=== PATIENT | male | born 1965 ===

== ENCOUNTER 2017-11-02 22:22 | Inpatient (IN) | payer MEDICARE ==
[2017-11-02 22:23] VITALS: BMI 25.9
--- NOTE | 2017-11-02 22:34 | C.PDOC ---
History Of Present Illness 51 year old male is a transfer from [facility]. Patient was medically cleared at [facility] and was accepted by Dr. To for admission into psychiatric floor. Patient is pleasant, cooperative and with no complaints at this time. Time Seen by Provider: 11/02/17 22:34 Chief Complaint (Nursing): Psychiatric Evaluation History Per: Patient History/Exam Limitations: no limitations Onset/Duration Of Symptoms: Days Current Symptoms Are (Timing): Still Present Suicide/Self Injury Attempted (Context): None Modifying Factor(s): None Associated Symptoms: Depression Additional History Per: Patient, EMS Past Medical History Reviewed: Historical Data, Nursing Documentation, Vital Signs Vital Signs: Last Vital Signs Temp 99.6 F 11/02/17 22:28 Pulse 73 11/02/17 22:28 Resp 18 11/02/17 22:28 BP 103/69 11/02/17 22:28 Pulse Ox 96 11/02/17 22:37 - Medical History PMH: Arthritis (osteoarthritis,), Asthma, Bronchitis, Depression, HIV (FOR 30 YEARS), HTN, Hyperlipidemia, Kidney Stones, Mitral Valve Prolapse, Chronic Kidney Disease (stones), Seizures (LAST SEIZURES -3 YEARS AGO) Denies: Anemia, Diabetes, Hepatitis, Sexually Transmitted Disease Surgical History: No Surg Hx - [facility] Procedures GROUP PSYCHOTHERAPY (04/14/17) INDIVIDUAL PSYCHOTHERAPY, COGNITIVE-BEHAVIORAL (04/14/17) Family History: States: No Known Family Hx - Social History Hx Alcohol Use: No Hx Substance Use: No - Immunization History Hx Tetanus Toxoid Vaccination: No Hx Influenza Vaccination: No Hx Pneumococcal Vaccination: No Review Of Systems Constitutional: Negative for: Fever, Chills Eyes: Negative for: Vision Change Cardiovascular: Negative for: Chest Pain Respiratory: Negative for: Shortness of Breath Gastrointestinal: Negative for: Nausea, Vomiting, Abdominal Pain Psych: Positive for: Depression Physical Exam - Physical Exam Appears: Non-toxic, No Acute Distress Skin: Warm, Dry Head: Normacephalic Eye(s): bilateral: Normal Inspection Chest: Symmetrical Cardiovascular: Rhythm Regular Respiratory: No Rales, No Rhonchi, No Wheezing Gastrointestinal/Abdominal: Soft, No Tenderness, No Guarding, No Rebound Extremity: No Tenderness, No Swelling Extremity: Bilateral: Atraumatic, Normal Color And Temperature, Normal ROM Neurological/Psych: Oriented x3, Normal Speech Gait: Steady ED Course And Treatment O2 Sat by Pulse Oximetry: 96 (ON RA) Pulse Ox Interpretation: Normal Disposition Discussed With DrWolfgang: Alissa To Comment: accepted the pt on his service and took over the care at 10:36 PM Doctor Will See Patient In The: Hospital Counseled Patient/Family Regarding: Studies Performed, Diagnosis - Disposition Referrals: Non [facility] Provider, [Primary Care Provider] - Disposition: HOSPITALIZED Disposition Time: 22:34 Condition: FAIR Forms: [employer] [facility] ([place]) - POA Present On Arrival: None - Clinical Impression Clinical Impression: Major depression - Scribe Statement The provider has reviewed the documentation as recorded by the Scribe Hemal Acosta All medical record entries made by the Scribe were at my direction and personally dictated by me. I have reviewed the chart and agree that the record accurately reflects my personal performance of the history, physical exam, medical decision making, and the department course for this patient. I have also personally directed, reviewed, and agree with the discharge instructions and disposition.
[2017-11-03] MEDS ORDERED: Aluminum Hydroxide/Magnesium Hydroxide Susp (30 mL) PO ONE (01:00)
--- NOTE | 2017-11-03 01:08 | PCM.BM ---
<Jelena Navarro - Last Filed: 11/03/17 01:05> Treatment Plan Problems - Problems identified on initial assessmt Depression Date Initiated: 11/03/17 Time Initiated: 01:05 Assessment reference: NA Status: Active (pt. has feeling of depression since a month ago due to his mother fell and in a fdc.) Treatment assets and liabiliti Patient Assests: adapts well, cooperative Patient Liabilities: physical pain (pt. has pain in hi body related to surgeries.), medical problems (pt. has spilepsy/ knee replacement/ ) - Milieu Protocol Maintain good personal hygiene: daily Encourage regular showers, daily Remind patient to perform daily oral care, daily Assist patient to perform ADL's Maintain personal safety: every shift Educate patient to report safety concerns to staff, every shift Monitor environment for contraband/sharps Medication safety: Monitor for expected outcome, potential side effects: every shift, Assess barriers to learning: every shift, Assess readiness for medication education: every shift <Alissa To - Last Filed: 11/04/17 12:38> - Diagnosis (1) Major depressive disorder Status: Chronic Interventions: 11/04/17 12:38 * Assess/adjust medications daily and /or as needed * See patient on an individual basis 7x/week to assess symptoms of depression * Monitor for side effects & effectiveness of medications * <Debbie Isaac - Last Filed: 11/04/17 13:26> Family Contact Family involvement: Famliy/SO not involved - Goals for Treatment Patient goals for treatment: "I need an outpatient program." Discharge/Continuing Care - Education Needs Education Needs: Patient Medication, Patient Coping Skills - Discharge Discharge Criteria: Tolerates medication w/o severe side effects, Reduction of target symptoms Discharge to:: Home - Treatment Team Participation Discussed with Family/SO: No Was Patient/Family/SO present at Treatment Team Meeting: Yes
[2017-11-03] MEDS ORDERED: Albuterol HFA 90 mcg/actuation (8 g) IH PRN (10:40)
[2017-11-03] MEDS ORDERED: ALIROCUMAB 75 MG SQ SCH (10:45)
[2017-11-03] MEDS: Pantoprazole 40 mg EC Tab PO SCH (12:17)
[2017-11-03] MEDS: Fluticasone-Salmeterol 250-50mcg Diskus IH SCH ×3 (12:18→20:22)
[2017-11-03] MEDS: Abacavir/Lamivudine/Zidovudine 300 mg-150mg- 300 mg Tab PO SCH ×2 (12:22→22:59)
[2017-11-03] MEDS: Lopinavir/Ritonavir Tab PO SCH ×2 (12:23→21:07)
[2017-11-03] MEDS: Tetrahydrozoline Opht 0.05% Sol (15 ml) OD SCH (17:25)
[2017-11-03] MEDS: Aritificial Tears (15ml) OD SCH (17:26)
[2017-11-04] MEDS: Tetrahydrozoline Opht 0.05% Sol (15 ml) OD SCH ×4 (00:30→17:05)
[2017-11-04] MEDS: Aritificial Tears (15ml) OD SCH ×4 (00:30→17:04)
[2017-11-04] MEDS: Fluticasone-Salmeterol 250-50mcg Diskus IH SCH ×2 (08:16→21:34)
[2017-11-04] MEDS: Pantoprazole 40 mg EC Tab PO SCH (09:14)
[2017-11-04] MEDS: Abacavir/Lamivudine/Zidovudine 300 mg-150mg- 300 mg Tab PO SCH ×2 (09:32→21:22)
[2017-11-04] MEDS: Lopinavir/Ritonavir Tab PO SCH ×3 (09:33→21:42)
--- NOTE | 2017-11-04 10:41 | PCM.PSYCH ---
Initial Psychiatric Evaluation - Initial Psychiatric Evaluation Type of Admission: Voluntary Legal Status: Capacity Chief Complaint (in patient's own words): I was feeling depressed and suicidal History of Present Illness and Precipitating Events: Pt is 51 years old CM, who came to ED with depressed mood, and suicidal dieation. Pt reports a long history of depression. He reports history of one inpatient psychiatric hospitalization at [facility] almost 7 moth ago, but denies any history of follow up with any psychiatrist. As per the pt he stopped taking his medications and he had almost 3 seizure episode, as a result he fell down and hit his head. He went through a surgery. As a result, he became increasingly depressed and yesterday came to the to get help. Patient reports depressed mood, feelings of hopelessness and helplessness, poor sleep and poor appetite. He denies any manic symptoms. He denies any auditory or visual hallucinations or any psychotic symptoms. Patient denies any recent substance abuse or any drinking. PMH: HTN, HIV, Seizure disorder, Back pain, Asthma Current Medications: Active Medications Generic Name Dose Route Start Last Admin Trade Name Freq PRN Reason Stop Dose Admin Abacavir/Lamivudine/Zidovudine 1 tab 11/03/17 10:45 11/04/17 09:32 Trizivir 300 Mg-150 Mg-300 Mg PO 1 tab Q12 KENDRA Administration Protocol Albuterol 2 puff 11/03/17 10:40 Ventolin Hfa 90 Mcg/Actuation (8 G) IH RQ6 PRN Shortness of Breath Amlodipine Besylate 5 mg 11/03/17 10:45 11/04/17 09:33 Norvasc PO 5 mg DAILY KENDRA Administration Artificial Tears 0 ml 11/03/17 18:00 11/04/17 06:25 Artificial Tears OD 2 drop Q6 KENDRA Administration Clonazepam 0.5 mg 11/03/17 20:15 11/04/17 09:33 Klonopin PO 0.5 mg BID KENDRA Administration Ezetimibe 10 mg 11/03/17 22:00 11/03/17 21:08 Zetia PO 10 mg HS KENDRA Administration Home Med 75 mg 11/03/17 10:45 Alirocumab [Praluent Pen] SQ Q14D KENDRA Ibuprofen 600 mg 11/03/17 13:39 Motrin Tab PO TID PRN Pain, Mild (1-3) Lopinavir/Ritonavir 1 cap 11/03/17 10:45 11/04/17 09:33 Kaletra 200-50 Mg PO 1 cap Q12 KENDRA Administration Protocol Losartan Potassium 50 mg 11/03/17 10:45 11/04/17 09:33 Cozaar PO 50 mg DAILY KENDRA Administration Metoprolol Tartrate 50 mg 11/03/17 10:45 11/04/17 09:33 Lopressor PO 50 mg Q12 KENDRA Administration Oxcarbazepine 600 mg 11/03/17 10:45 11/04/17 09:32 Trileptal PO 600 mg Q12 KENDRA Administration Pantoprazole Sodium 40 mg 11/03/17 10:45 11/04/17 09:14 Protonix Ec Tab PO 40 mg DAILY KENDRA Administration Rosuvastatin Calcium 20 mg 11/03/17 22:00 11/03/17 21:07 Crestor PO 20 mg HS KENDRA Administration Fluticasone/Salmeterol 1 puff 11/03/17 10:45 11/04/17 08:16 Advair Diskus 250/50 IH 1 puff RQ12 KENDRA Administration Tetrahydrozoline HCl/Zinc Sulfate 0 ml 11/03/17 18:00 11/04/17 06:26 Visine 0.05% Opht Soln OD 1 % Q6 KENDRA Administration Past Psychiatric History - Past Psychiatric History Previous Treatment History: Inpatient Pertinent Medical Hx (Current Medical&Sleep Prob, Allergies): Allergies Allergy/AdvReac Type Severity Reaction Status Date / Time iodine Allergy RASH Verified 11/02/17 22:26 Penicillins Allergy RASH Verified 11/02/17 22:26 Sulfa (Sulfonamide Allergy RASH Verified 11/02/17 22:26 Antibiotics) Abacavir/Lamivudine/Zidovudine [Trizivir Tablet] 1 tab PO Q12 04/14/17 Alirocumab [Praluent Pen] 75 mg SQ Q14D 04/14/17 Colesevelam HCl [Welchol] 1,250 mg PO BID 04/14/17 Ezetimibe [Zetia] 10 mg PO HS 04/14/17 Lopinavir/Ritonavir [Kaletra 200-50 mg] 1 tab PO Q12 04/14/17 Metoprolol Tartrate [Lopressor] 50 mg PO Q12 04/14/17 OXcarbazepine [Trileptal] 600 mg PO Q12 04/14/17 Pantoprazole Sodium [Protonix] 40 mg PO DAILY 04/14/17 Rosuvastatin Calcium [Crestor] 20 mg PO HS 04/14/17 amLODIPine [Norvasc] 5 mg PO DAILY 04/14/17 Albuterol HFA [Ventolin HFA 90 mcg/actuation (8 g)] 2 puff IH Q6H PRN #1 inhaler 04/19/17 Fluticasone/Salmeterol 250/50 [Advair Diskus 250/50] 1 puff IH Q12 #1 unit 04/19 Losartan [Cozaar] 50 mg PO DAILY tab 04/19/17 Sertraline [Zoloft] 50 mg PO DAILY #30 tab 04/19/17 clonazePAM [Klonopin] 1 mg PO Q12 #60 tab 04/19/17 Albuterol/Ipratropium [Duoneb 3 mg/0.5 mg (3 ml) UD] 3 ml INH RQ6 PRN #40 neb Review of Systems - Review of Systems All systems: reviewed and no additional remarkable complaints except - Psychiatric Psychiatric: Anxiety, Behavioral Changes, Depression, Irritability, Suicidal Ideation Mental Status Examination - Personal Presentation Personal Presentation: Looks stated age - Affect Affect: Constricted, Depressed - Motor Activity Motor Activity: Calm - Reliability in Providing Information Reliability in Providing Information: Good - Speech Speech: Organized - Mood Mood: Depressed, Anxious - Formal Thought Process Formal Thought Process: No Impairment - Obsessions/Compulsions Obsessions: No Compulsions: No - Cognitive Functions Orientation: Person, Place, Situation, Time Sensorium: Alert Attention/Concentration: Attentive Abstract Thinking: [place] Estimate of Intelligence: Below average Judgement: Imparied, as evidence by: Poor judgement, Imparied, as evidence by: Lack of insight into illness - Risk Risk: Suicidal, Diminished functioning - Limitations Limitations: Living alone DSM 5 DX - DSM 5 DSM 5 Diagnosis: Major Depressive Disorder, severe, without psychosis - Recommended/Plan of Treatment Treatment Recommendations and Plan of Treatment: Major Depressive Disorder, Severe, w/out psychosis HTN, HIV, Seizure disorder, Back pain, Asthma Neurontin 100 mg PO BID Seroquel 50 mg Remeron 15 mg As need medications All risks, benefits and alternatives of the meds discussed, and the pt agreed and understood. Attend groups and activities Individual therapy daily Psychoeducation and support daily Encourage compliance with meds and after care Refer to outpatient program Teach healthy lifestyle methods, i.e. diet, exercise, meditation Smoking cessation and patch if needed Continue prescribed medications for HTN, HIV, Seizure disorder, Back pain, Asthma - Smoking Cessation Smoking Cessation Initiated: No
[2017-11-04] MEDS: Tramadol 25 mg PO PRN ×2 (12:56→21:22)
--- NOTE | 2017-11-04 15:25 | CP.PCM.CON ---
Addendum entered and electronically signed by Isabell Montes, DO 11/04/17 22:40: Patient's rash will be treated with hydrocortisone cream 1% BID for 3-5 days. Medicine team will sign off. Please feel free to re-consult if necessary. Thanks! Addendum entered and electronically signed by Isabell Montes, DO 11/04/17 16:36: Assessment/plan; Anxiety-->per psych recommendations. continue Klonopin 0.5 mg po bid Original Note: <Isabell Montes - Last Filed: 11/04/17 16:25> History of Present Illness - History of Present Illness History of Present Illness: Medicine consult note 51 year old male with past medical history of HTN, HIV x 34 yrs, HLD, seizure disorder, kidney stones, depression and anxiety is admitted to voluntary psych unit for depression, anxiety and SI. Medicine team consulted for rash on upper and lower extremities. Patient states that he developed mild rash on his arms and legs 3 months ago. He states 3 months ago, he was under a lot of stress because his mother was "taken away" and put in jail. Since then, he he feels very anxious which causes him to itch his arms and legs a lot. He also states that since that event, he has had multiple seizures. His last seizure was yesterday for which he was [facility] in [facility]. Patient states that he is compliant with his seizure medication but he blames the increased seizures on increased anxiety and stress in his life. Patient denies having any bed bugs in his apartment that he is aware of. His roommates do not have any rash. Denies having any new soaps, detergents, clothing or lotions. Patient states in [place] he was given hydrocortisone cream which helped with the rash. PMHx: stated above Sx: B/L hip replacement, left shoulder surgery, back surgery, right knee surgery Social:Denies tobacco, ETOH or drug use. Lives with 2 room mates in apartment. Currently unemployed FHx: HTN, DM PMD: Dr. Kevin Grant Home meds: See [facility] Review of Systems - Constitutional Constitutional: absent: Chills, Fever - EENT Eyes: absent: Blurred Vision, Change in Vision - Cardiovascular Cardiovascular: absent: Chest Pain, Dyspnea on Exertion, Edema - Gastrointestinal Gastrointestinal: absent: Abdominal Pain, Diarrhea, Heartburn, Nausea, Vomiting - Genitourinary Genitourinary: absent: Dysuria, Urinary Frequency, Urinary Urgency - Musculoskeletal Musculoskeletal: absent: Back Pain, Muscle Cramps, Numbness, Tingling - Neurological Neurological: absent: Confusion, Headaches - Psychiatric Psychiatric: Anxiety, Depression, Suicidal Ideation. absent: Anhedonia, Confusion, Homicidal Ideation, Irritability, Mood Swings, Panic Attacks, Visual Hallucinations, Tactile Hallucinations - Endocrine Endocrine: absent: Flushing, Polyphagia Past Patient History - Infectious Disease Hx of Infectious Diseases: None - Past Medical History & Family History Past Medical History?: Yes - Past Social History Smoking Status: Never Smoked Chewing Tobacco Use: No Cigar Use: No Alcohol: None Drugs: Denies Home Situation {Lives}: Friends - CARDIAC Hx Hypertension: Yes Hx Mitral Valve Prolapse: Yes - PULMONARY Hx Asthma: Yes Hx Bronchitis: Yes - NEUROLOGICAL Hx Seizures: Yes (LAST SEIZURES -3 YEARS AGO) - HEENT Hx HEENT Problems: No - RENAL Hx Chronic Kidney Disease: Yes (stones) Hx Kidney Stones: Yes - ENDOCRINE/METABOLIC Hx Endocrine Disorders: No - HEMATOLOGICAL/ONCOLOGICAL Hx Anemia: No Hx Human Immunodeficiency Virus (HIV): Yes (FOR 30 YEARS) - INTEGUMENTARY Hx Dermatological Problems: No - MUSCULOSKELETAL/RHEUMATOLOGICAL Hx Arthritis: Yes (osteoarthritis,) - GASTROINTESTINAL Hx Gastrointestinal Disorders: No - GENITOURINARY/GYNECOLOGICAL Hx Sexually Transmitted Disorders: No - PSYCHIATRIC Hx Substance Use: No - SURGICAL HISTORY Hx Surgeries: Yes Hx Joint Replacement: Yes (BILATERAL HIP REPLACEMENT) Other/Comment: REMOVAL OF CYST ON ARM-18 YEARS AGO. left rotator cuff repair. hemmoroidectomy - ANESTHESIA Hx Anesthesia: Yes Hx Anesthesia Reactions: No Hx Malignant Hyperthermia: No Meds Allergies/Adverse Reactions: Allergies Allergy/AdvReac Type Severity Reaction Status Date / Time iodine Allergy RASH Verified 11/02/17 22:26 Penicillins Allergy RASH Verified 11/02/17 22:26 Sulfa (Sulfonamide Allergy RASH Verified 11/02/17 22:26 Antibiotics) - Medications Medications: Current Medications Abacavir/Lamivudine/Zidovudine (Trizivir 300 Mg-150 Mg-300 Mg) 1 tab PO Q12 KENDRA PRN Reason: Protocol Last Admin: 11/04/17 09:32 Dose: 1 tab Albuterol (Ventolin Hfa 90 Mcg/Actuation (8 G)) 2 puff IH RQ6 PRN PRN Reason: Shortness of Breath Amlodipine Besylate (Norvasc) 5 mg PO DAILY [facility] Last Admin: 11/04/17 09:33 Dose: 5 mg Artificial Tears (Artificial Tears) 0 ml OD Q6 [facility] Last Admin: 11/04/17 11:15 Dose: 1 drop Clonazepam (Klonopin) 0.5 mg PO BID [facility] Last Admin: 11/04/17 09:33 Dose: 0.5 mg Ezetimibe (Zetia) 10 mg PO HS [facility] Last Admin: 11/03/17 21:08 Dose: 10 mg Home Med (Alirocumab [Praluent Pen]) 75 mg SQ Q14D [facility] Ibuprofen (Motrin Tab) 600 mg PO TID PRN PRN Reason: Pain, Mild (1-3) Lopinavir/Ritonavir (Kaletra 200-50 Mg) 2 cap PO Q12 [facility] PRN Reason: Protocol Losartan Potassium (Cozaar) 50 mg PO DAILY [facility] Last Admin: 11/04/17 09:33 Dose: 50 mg Metoprolol Tartrate (Lopressor) 50 mg PO Q12 [facility] Last Admin: 11/04/17 09:33 Dose: 50 mg Mirtazapine (Remeron) 15 mg PO [facility] Oxcarbazepine (Trileptal) 600 mg PO Q12 [facility] Last Admin: 11/04/17 09:32 Dose: 600 mg Pantoprazole Sodium (Protonix Ec Tab) 40 mg PO DAILY [facility] Last Admin: 11/04/17 09:14 Dose: 40 mg Rosuvastatin Calcium (Crestor) 20 mg PO HS [facility] Last Admin: 11/03/17 21:07 Dose: 20 mg Fluticasone/Salmeterol (Advair Diskus 250/50) 1 puff IH RQ12 [facility] Last Admin: 11/04/17 08:16 Dose: 1 puff Tetrahydrozoline HCl/Zinc Sulfate (Visine 0.05% Opht Soln) 0 ml OD Q6 [facility] Last Admin: 11/04/17 11:15 Dose: 1 drop Tramadol HCl (Ultram) 25 mg PO TID PRN PRN Reason: Pain, Mild (1-3) Last Admin: 11/04/17 12:56 Dose: 25 mg Physical Exam - Constitutional Appears: Non-toxic, No Acute Distress - Head Exam Head Exam: ATRAUMATIC, NORMOCEPHALIC - Eye Exam Eye Exam: EOMI - ENT Exam ENT Exam: Mucous Membranes Moist - Respiratory Exam Respiratory Exam: Clear to Auscultation Bilateral, NORMAL BREATHING PATTERN. absent: Rales, Rhonchi, Wheezes - Cardiovascular Exam Cardiovascular Exam: REGULAR RHYTHM, +S1, +S2 - GI/Abdominal Exam GI & Abdominal Exam: Normal Bowel Sounds, Soft - Extremities Exam Extremities exam: Negative for: calf tenderness, pedal edema - Neurological Exam Neurological exam: Alert, Oriented x3 - Psychiatric Exam Psychiatric exam: Anxious, Normal Affect, Normal Mood, Suicidal Ideation - Skin Skin Exam: Dry, Warm Additional comments: tiny vesicular rash on forearms B/L and lower legs and feet b/l. Rashes are scabbed. No open wound noticed. No scratch basurto. No erythema or warmth Results - Vital Signs Recent Vital Signs: Last Vital Signs Temp 97.5 F L 11/04/17 06:48 Pulse 65 11/04/17 09:09 Resp 16 11/04/17 06:48 BP 123/78 11/04/17 09:09 Pulse Ox 100 11/02/17 23:31 Assessment & Plan - Assessment and Plan (Free Text) Assessment: 51 year old male with past medical history of HTN, HLD, HIV, seizure disorder, kidney stones, depression and anxiety is being seen for rash on upper and lower extremities. Nonspecific rash - Will start pt on hydrocortisone cream 1% to apply to effected area BID HTN - Continue home medication: Norvasc 5 mg po qd, Cozaar 50 mg qd and metoprolol 50 mg po bid and Klonopin 0.5 mg po BID HLD - Continue home medication: Zetia 10 mg po HS and crestor 20 mg po HS HIV - Continue therapy with Trizivir 1 tab po BID and Kaletra - Will consider check CD4 and viral load COPD - continue Ventolin inhaler and Advair diskus Seizure disorder - Continue Trileptal 600 mg po BID Depression - Management per psych - Currently pt on Remeron and trazadone Prophylaxis - No indication for SCDs as pt ambulating - Protonix qd Case discussed with attending, Dr. oGnzalez. - Date & Time Date: 11/04/17 Time: 15:18 <Kathy Gonzalez - Last Filed: 11/06/17 15:40> Meds - Medications Medications: Current Medications Abacavir/Lamivudine/Zidovudine (Trizivir 300 Mg-150 Mg-300 Mg) 1 tab PO Q12 KENDRA PRN Reason: Protocol Last Admin: 11/06/17 09:39 Dose: 1 tab Albuterol (Ventolin Hfa 90 Mcg/Actuation (8 G)) 2 puff IH RQ6 PRN PRN Reason: Shortness of Breath Amlodipine Besylate (Norvasc) 5 mg PO DAILY [facility] Last Admin: 11/06/17 09:30 Dose: Not Given Artificial Tears (Artificial Tears) 0 ml OD Q6 [facility] Last Admin: 11/06/17 10:59 Dose: 1 drop Clonazepam (Klonopin) 0.5 mg PO BID [facility] Last Admin: 11/06/17 09:32 Dose: 0.5 mg Ezetimibe (Zetia) 10 mg PO HS [facility] Last Admin: 11/05/17 21:10 Dose: 10 mg Gabapentin (Neurontin) 100 mg PO TID [facility] Last Admin: 11/06/17 13:33 Dose: 100 mg Home Med (Alirocumab [Praluent Pen]) 75 mg SQ Q14D [facility] Hydrocortisone (Cortizone 1% Cream) 0 gm TOP BID [facility] Last Admin: 11/06/17 10:58 Dose: 1 applic Ibuprofen (Motrin Tab) 600 mg PO TID PRN PRN Reason: Pain, Mild (1-3) Last Admin: 11/05/17 09:59 Dose: 600 mg Lopinavir/Ritonavir (Kaletra 200-50 Mg) 2 cap PO Q12 KENDRA PRN Reason: Protocol Last Admin: 11/06/17 09:37 Dose: 2 cap Losartan Potassium (Cozaar) 50 mg PO DAILY [facility] Last Admin: 11/06/17 09:28 Dose: Not Given Metoprolol Tartrate (Lopressor) 50 mg PO Q12 [facility] Last Admin: 11/06/17 09:30 Dose: Not Given Mirtazapine (Remeron) 30 mg PO HS [facility] Last Admin: 11/05/17 21:15 Dose: 30 mg Oxcarbazepine (Trileptal) 600 mg PO Q12 [facility] Last Admin: 11/06/17 09:32 Dose: 600 mg Pantoprazole Sodium (Protonix Ec Tab) 40 mg PO DAILY [facility] Last Admin: 11/06/17 11:00 Dose: Not Given Quetiapine Fumarate (Seroquel) 50 mg PO HS [facility] Last Admin: 11/05/17 21:07 Dose: 50 mg Rosuvastatin Calcium (Crestor) 20 mg PO HS [facility] Last Admin: 11/05/17 21:09 Dose: 20 mg Fluticasone/Salmeterol (Advair Diskus 250/50) 1 puff IH RQ12 [facility] Last Admin: 11/06/17 08:58 Dose: 1 puff Tetrahydrozoline HCl/Zinc Sulfate (Visine 0.05% Opht Soln) 0 ml OD Q6 [facility] Last Admin: 11/06/17 10:59 Dose: 1 drop Tramadol HCl (Ultram) 25 mg PO TID PRN PRN Reason: Pain, Mild (1-3) Last Admin: 11/05/17 17:31 Dose: 25 mg Results - Vital Signs Recent Vital Signs: Last Vital Signs Temp 98.6 F 11/06/17 06:00 Pulse 65 11/06/17 06:00 Resp 20 11/06/17 06:00 BP 114/67 11/06/17 06:00 Pulse Ox 97 11/06/17 06:00 Attending/Attestation - Attestation I have personally seen and examined this patient.: Yes I have fully participated in the care of the patient.: Yes I have reviewed all pertinent clinical information: Yes Notes (Text): Seen and examined. Patient has healing rash.likey bug bite. No eczema,no new rash. C/O itchy skin and the hydrocortisone was helping We will try hydrocortisone Assessment and the plan discussed with the resident and I agree with the documentation
[2017-11-04] MEDS: Hydrocortisone 1% Cream (30 GM) TOP SCH (17:17)
[2017-11-05] MEDS: Aritificial Tears (15ml) OD SCH ×5 (00:07→17:32)
[2017-11-05] MEDS: Tetrahydrozoline Opht 0.05% Sol (15 ml) OD SCH ×5 (00:07→17:32)
--- NOTE | 2017-11-05 01:42 | PCM.PYCHPN ---
Psychiatric Progress Note - Psychiatric Progress Note Patient seen today, length of contact: 15 min Patient Chief Complaint: I was feeling depressed.' Problems Identified/Issues Discussed: Patient seen and evaluated, chart reviewed and discussed with the nurse. Pt reports depressed mood, and reports feelings of hopelessness and helplessness. He remained isolated and withdrawn, and confined to his room. Patient reports some improvement in his sleep. He denies any auditory hallucinations, visual hallucinations, or any paranoia. Patient is compliant with medications and denies any side effects. Symptoms are improving but pt needs more time to stabilize. Support and psychoeducation given. Medication Change: Yes Medical Record Reviewed: Yes Mental Status Examination - Cognitive Function Orientation: Person, Place, Situation, Time Memory: Intact Attention: WNL Concentration: Poor Association: WNL Fund of Knowledge: Poor - Mood Mood: Depressed, Anxious - Affect Affect: Constricted, Depressed - Speech Speech: Soft - Formal Thought Process Formal Thought Process: No Impairment - Suicidal Ideation Suicidal Ideation: No - Homicidal Ideation Homicidal Ideation: No Goal/Treatment Plan - Goal/Treatment Plan Need for Continued Stay: Severe depression anxiety, Severe functional impairment Progress Toward Problem(s) and Goals/Treatment Plan: Major Depressive Disorder, Severe, w/out psychosis HTN, HIV, Seizure disorder, Back pain, Asthma Neurontin 100 mg PO BID Seroquel 50 mg Remeron 15 mg As need medications All risks, benefits and alternatives of the meds discussed, and the pt agreed and understood. Attend groups and activities Individual therapy daily Psychoeducation and support daily Encourage compliance with meds and after care Refer to outpatient program Teach healthy lifestyle methods, i.e. diet, exercise, meditation Smoking cessation and patch if needed Continue prescribed medications for HTN, HIV, Seizure disorder, Back pain, Asthma
[2017-11-05] MEDS: Fluticasone-Salmeterol 250-50mcg Diskus IH SCH ×2 (08:58→20:09)
[2017-11-05] MEDS: Hydrocortisone 1% Cream (30 GM) TOP SCH ×2 (09:00→17:27)
[2017-11-05] MEDS: Pantoprazole 40 mg EC Tab PO SCH (09:47)
[2017-11-05] MEDS: Abacavir/Lamivudine/Zidovudine 300 mg-150mg- 300 mg Tab PO SCH ×2 (09:48→21:10)
[2017-11-05] MEDS: Lopinavir/Ritonavir Tab PO SCH ×2 (09:49→21:08)
[2017-11-05] MEDS ORDERED: QUEtiapine 50 mg XR Tab PO SCH (10:00)
--- NOTE | 2017-11-05 16:59 | PCM.PYCHPN ---
Psychiatric Progress Note - Psychiatric Progress Note Patient seen today, length of contact: 15 min Patient Chief Complaint: "OK" Problems Identified/Issues Discussed: The pt is seen, chart reviewed, case discussed with staff. Support and psychoeducation given, CBT and PA used briefly No new symptoms reported, improving slowly and needs more time No SEs from medications, risks discussed. After care discussed Medication Change: Yes Medical Record Reviewed: Yes Mental Status Examination - Cognitive Function Orientation: Person, Place, Situation, Time Memory: Intact Attention: WNL Concentration: Poor Association: WNL Fund of Knowledge: Poor - Mood Mood: Depressed, Anxious - Affect Affect: Constricted, Depressed - Speech Speech: Soft - Formal Thought Process Formal Thought Process: No Impairment - Suicidal Ideation Suicidal Ideation: No - Homicidal Ideation Homicidal Ideation: No Goal/Treatment Plan - Goal/Treatment Plan Need for Continued Stay: Severe depression anxiety, Discharge may exacerbated symptoms, Severe functional impairment Progress Toward Problem(s) and Goals/Treatment Plan: Continue medications Support and psychoeducation daily Attend groups and activities daily After care planning by VAN
[2017-11-05] MEDS: Tramadol 25 mg PO PRN (17:31)
[2017-11-06] MEDS: Tetrahydrozoline Opht 0.05% Sol (15 ml) OD SCH ×4 (00:32→17:14)
[2017-11-06] MEDS: Aritificial Tears (15ml) OD SCH ×4 (00:32→17:14)
[2017-11-06] MEDS: Fluticasone-Salmeterol 250-50mcg Diskus IH SCH ×2 (08:58→19:41)
[2017-11-06] MEDS: Lopinavir/Ritonavir Tab PO SCH ×2 (09:37→21:30)
[2017-11-06] MEDS: Abacavir/Lamivudine/Zidovudine 300 mg-150mg- 300 mg Tab PO SCH ×2 (09:39→21:47)
[2017-11-06] MEDS: Hydrocortisone 1% Cream (30 GM) TOP SCH ×2 (10:58→17:13)
[2017-11-06] MEDS: Pantoprazole 40 mg EC Tab PO SCH (11:00)
[2017-11-07] MEDS: Aritificial Tears (15ml) OD SCH ×4 (00:14→17:17)
[2017-11-07] MEDS: Tetrahydrozoline Opht 0.05% Sol (15 ml) OD SCH ×4 (00:15→17:17)
[2017-11-07 06:13] VITALS: O2SAT 99
[2017-11-07] MEDS: Abacavir/Lamivudine/Zidovudine 300 mg-150mg- 300 mg Tab PO SCH ×2 (09:52→21:04)
[2017-11-07] MEDS: Pantoprazole 40 mg EC Tab PO SCH (09:52)
[2017-11-07] MEDS: Tramadol 25 mg PO PRN ×2 (09:52→16:30)
[2017-11-07] MEDS: Lopinavir/Ritonavir Tab PO SCH ×2 (09:53→21:18)
[2017-11-07] MEDS: Hydrocortisone 1% Cream (30 GM) TOP SCH ×2 (09:56→17:20)
[2017-11-07] MEDS: Fluticasone-Salmeterol 250-50mcg Diskus IH SCH ×2 (10:03→20:57)
--- NOTE | 2017-11-07 13:00 | PCM.PYCHPN ---
Psychiatric Progress Note - Psychiatric Progress Note Patient seen today, length of contact: 15 min Patient Chief Complaint: I was feeling depressed.' Problems Identified/Issues Discussed: Patient seen and evaluated, chart reviewed and discussed with the nurse. Pt was able to sleep better than previous day, but woke up numerous times throughout the night. Pt was able to eat properly Pt denies SI/HI Patient is compliant with medications and denies any side effects. Symptoms are improving but pt needs more time to stabilize. Support and psychoeducation given. Medication Change: Yes Medical Record Reviewed: Yes Mental Status Examination - Cognitive Function Orientation: Person, Place, Situation, Time Memory: Intact Attention: WNL Concentration: Poor Association: WNL Fund of Knowledge: Poor - Mood Mood: Depressed, Anxious - Affect Affect: Constricted, Depressed - Speech Speech: Soft - Formal Thought Process Formal Thought Process: No Impairment - Suicidal Ideation Suicidal Ideation: No - Homicidal Ideation Homicidal Ideation: No Goal/Treatment Plan - Goal/Treatment Plan Need for Continued Stay: Severe depression anxiety, Discharge may exacerbated symptoms, Severe functional impairment Progress Toward Problem(s) and Goals/Treatment Plan: Major Depressive Disorder, Severe, w/out psychosis HTN, HIV, Seizure disorder, Back pain, Asthma Neurontin 100 mg PO BID Seroquel 50 mg Remeron 15 mg As need medications All risks, benefits and alternatives of the meds discussed, and the pt agreed and understood. Attend groups and activities Individual therapy daily Psychoeducation and support daily Encourage compliance with meds and after care Refer to outpatient program Teach healthy lifestyle methods, i.e. diet, exercise, meditation Smoking cessation and patch if needed Continue prescribed medications for HTN, HIV, Seizure disorder, Back pain, Asthma
[2017-11-08] MEDS: Aritificial Tears (15ml) OD SCH ×4 (00:53→17:41)
[2017-11-08] MEDS: Tetrahydrozoline Opht 0.05% Sol (15 ml) OD SCH ×4 (00:54→17:42)
[2017-11-08] MEDS: Pantoprazole 40 mg EC Tab PO SCH (10:20)
[2017-11-08] MEDS: Lopinavir/Ritonavir Tab PO SCH ×2 (10:22→21:30)
[2017-11-08] MEDS: Abacavir/Lamivudine/Zidovudine 300 mg-150mg- 300 mg Tab PO SCH (10:23)
[2017-11-08] MEDS: Fluticasone-Salmeterol 250-50mcg Diskus IH SCH ×2 (10:37→20:20)
[2017-11-08] MEDS: Hydrocortisone 1% Cream (30 GM) TOP SCH ×2 (10:39→17:42)
[2017-11-08] MEDS: Tramadol 25 mg PO PRN (19:24)
[2017-11-09] MEDS: Aritificial Tears (15ml) OD SCH ×4 (00:42→17:31)
[2017-11-09] MEDS: Tetrahydrozoline Opht 0.05% Sol (15 ml) OD SCH ×4 (00:42→17:31)
[2017-11-09] MEDS: Fluticasone-Salmeterol 250-50mcg Diskus IH SCH ×2 (08:56→20:00)
[2017-11-09] MEDS: Lopinavir/Ritonavir Tab PO SCH (11:16)
[2017-11-09] MEDS: Pantoprazole 40 mg EC Tab PO SCH (11:18)
[2017-11-09] MEDS: Hydrocortisone 1% Cream (30 GM) TOP SCH ×2 (11:21→17:32)
[2017-11-10] MEDS: Aritificial Tears (15ml) OD SCH ×2 (00:22→06:23)
[2017-11-10] MEDS: Tetrahydrozoline Opht 0.05% Sol (15 ml) OD SCH ×2 (00:23→06:24)
[2017-11-10 06:46] VITALS: BP 118/73; PULSE 72; RESP 18; TEMP 97.4
[2017-11-10] MEDS: Fluticasone-Salmeterol 250-50mcg Diskus IH SCH (08:19)
[2017-11-10] MEDS: Pantoprazole 40 mg EC Tab PO SCH (09:35)
--- NOTE | 2017-11-10 09:52 | PCM.PYCHDC ---
Mental Status Examination - Mental Status Examination Orientation: Person, Place, Situation, Time Memory: Intact Mood: Neutral Affect: Constricted Speech: Soft Attention: WNL Concentration: WNL Association: WNL Fund of Knowledge: WNL Formal Thought Process: No Impairment Description of patient's judgement and insight: good, fair Psychotic Thoughts and Behaviors: denies any AVH Suicidal Ideation: No Current Homicidal Ideation?: No Discharge Summary - Discharge Note Reason for Hospitalization: Pt is 51 years old CM, who came to ED with depressed mood, and suicidal dieation. Pt reports a long history of depression. He reports history of one inpatient psychiatric hospitalization at [facility] almost 7 moth ago, but denies any history of follow up with any psychiatrist. As per the pt he stopped taking his medications and he had almost 3 seizure episode, as a result he fell down and hit his head. He went through a surgery. As a result, he became increasingly depressed and yesterday came to the to get help. Patient reports depressed mood, feelings of hopelessness and helplessness, poor sleep and poor appetite. He denies any manic symptoms. He denies any auditory or visual hallucinations or any psychotic symptoms. Patient denies any recent substance abuse or any drinking. Consultations:: List each consultation separately and include: 1. Reason for request. 2. Findings. 3. Follow-up Summary of Hospital Course include:: 1. Description of specific treatment plan utilized for patients during their course of treatmen. 2. Summarize the time- course for resolution of acute symptoms and/or regressed behaviors. 3. Describe issues identified and worked on during hospitalization. 4. Describe medication utilized. 5. Describe medical problems identified and treated. 6. Reassessment of suicide risk Summary of Hospital Course: Pt is 51 years old CM, who came to ED with depressed mood, and suicidal dieation. Pt reports a long history of depression. He reports history of one inpatient psychiatric hospitalization at [facility] almost 7 moth ago, but denies any history of follow up with any psychiatrist. As per the pt he stopped taking his medications and he had almost 3 seizure episode, as a result he fell down and hit his head. He went through a surgery. As a result, he became increasingly depressed and yesterday came to the to get help. Patient reports depressed mood, feelings of hopelessness and helplessness, poor sleep and poor appetite. He denies any manic symptoms. He denies any auditory or visual hallucinations or any psychotic symptoms. Patient denies any recent substance abuse or any drinking. PMH: HTN, HIV, Seizure disorder, Back pain, Asthma - Diagnosis (1) Major depressive disorder Current Visit: Yes Status: Chronic - Final Diagnosis (DSM 5) Condition upon Discharge: FAIR DSM 5: Major Depressive Disorder, Severe, w/out psychosis HTN, HIV, Seizure disorder, Back pain, Asthma Disposition: HOME/ ROUTINE Follow-up Treatment Plan: Major Depressive Disorder, Severe, w/out psychosis HTN, HIV, Seizure disorder, Back pain, Asthma Neurontin 100 mg PO BID Seroquel 50 mg Remeron 15 mg As need medications All risks, benefits and alternatives of the meds discussed, and the pt agreed and understood. Attend groups and activities Individual therapy daily Psychoeducation and support daily Encourage compliance with meds and after care Refer to outpatient program Teach healthy lifestyle methods, i.e. diet, exercise, meditation Smoking cessation and patch if needed Continue prescribed medications for HTN, HIV, Seizure disorder, Back pain, Asthma Prescriptions/Medication Reconciliation: Gabapentin [Neurontin] 100 mg PO BID #60 cap Mirtazapine [Remeron] 30 mg PO HS #60 tab QUEtiapine [SEROquel] 50 mg PO HS #30 tab traZODone [Desyrel] 100 mg PO HS PRN #30 tab PRN Reason: Insomnia - Smoking Cessation Smoking Cessation Medication prescribed: No - Antipsychotic Medications Pt discharged on 2 or more routine antipsychotic medications: No
== END 2017-11-10 12:30 | disposition home or self-care (01) | DRG 885 ==
LOC: C.ER 22:22 → SUPCPDRO 22:22 → C.5E 22:35
PROVIDERS: ADMIT Psychiatry & Neurology Psychiatry; ATTEND Psychiatry & Neurology Psychiatry
PROC: GZHZZZZ Group Psychotherapy (ICD-10-PCS; principal; 2017-11-02)
PROC: GZ56ZZZ Individual Psychotherapy, Supportive (ICD-10-PCS; 2017-11-02)
DX: F32.2 Major depressive disorder, single episode, severe without psychotic features (principal); B20 Human immunodeficiency virus [HIV] disease; F41.9 Anxiety disorder, unspecified; G40.909 Epilepsy, unspecified, not intractable, without status epilepticus; E78.5 Hyperlipidemia, unspecified; E11.22 Type 2 diabetes mellitus with diabetic chronic kidney disease; I12.9 Hypertensive chronic kidney disease with stage 1 through stage 4 chronic kidney disease, or unspecified chronic kidney disease; N18.9 Chronic kidney disease, unspecified; J44.9 Chronic obstructive pulmonary disease, unspecified; I34.1 Nonrheumatic mitral (valve) prolapse

== ENCOUNTER 2017-12-09 14:01 | Emergency (ER) | payer MEDICARE ==
[2017-12-09 14:02] VITALS: BMI 25.9
[2017-12-09 14:16] VITALS: BP 181/117; PULSE 78; RESP 18; TEMP 98.1; O2SAT 100
[2017-12-09] MEDS ORDERED: Oxycodone/Acetaminophen 5/325 mg Tab PO STA (14:41)
--- NOTE | 2017-12-09 14:47 | C.PDOC ---
History Of Present Illness 51 y/o M c PMHx seizure disorder and chronic R hip pain brought to ED in police custody due to saying he felt suicidal during police questionaire. Patient now states that he feels safe in police custody and wishes to be discharged in their custody. He states his birthday is tomorrow and he wishes to spend it with his mother tomorrow. Is requesting medication for his seizure disorder and his chronic hip pain for which he takes Percocet. Denies fever, chest pain, dyspnea. Time Seen by Provider: 12/09/17 14:02 Chief Complaint (Nursing): Medical Clearance Past Medical History Vital Signs: Last Vital Signs Temp 98.1 F 12/09/17 14:11 Pulse 78 12/09/17 14:11 Resp 18 12/09/17 14:11 BP 181/117 H 12/09/17 14:11 Pulse Ox 100 12/09/17 14:11 - Medical History PMH: Arthritis (osteoarthritis,), Asthma, Bronchitis, Depression, HIV (FOR 30 YEARS), HTN, Hyperlipidemia, Kidney Stones, Mitral Valve Prolapse, Chronic Kidney Disease (stones), Seizures (LAST SEIZURES -3 YEARS AGO) Denies: Anemia, Diabetes, Hepatitis, Sexually Transmitted Disease - [facility] Procedures GROUP PSYCHOTHERAPY (11/02/17) INDIVIDUAL PSYCHOTHERAPY, COGNITIVE-BEHAVIORAL (04/14/17) INDIVIDUAL PSYCHOTHERAPY, SUPPORTIVE (11/02/17) Family History: States: Unknown Family Hx - Social History Hx Alcohol Use: No Hx Substance Use: No - Immunization History Hx Tetanus Toxoid Vaccination: No Hx Influenza Vaccination: No Hx Pneumococcal Vaccination: No Review Of Systems Except As Marked, All Systems Reviewed And Found Negative. Constitutional: Negative for: Fever Cardiovascular: Negative for: Chest Pain Physical Exam - Physical Exam Appears: Non-toxic, No Acute Distress Skin: Normal Color Head: Normacephalic Oral Mucosa: Moist Neck: Normal ROM Chest: No Deformity Cardiovascular: Rhythm Regular Respiratory: No Accessory Muscle Use Gastrointestinal/Abdominal: Soft Extremity: Normal ROM Neurological/Psych: Normal Speech ED Course And Treatment O2 Sat by Pulse Oximetry: 100 Medical Decision Making Medical Decision Making: Evaluated by Crisis, appropriate for discharge in police custody. Disposition - Disposition Disposition: RELEASED IN POLICE CUSTODY Disposition Time: 14:49 Condition: STABLE Additional Instructions: Kelton Christensen is medically cleared to be discharged in police custody. Instructions: Depression - Clinical Impression Clinical Impression: Medical assessment
[2017-12-09] MEDS ORDERED: Oxycodone/Acetaminophen 5/325 mg Tab ONE (14:58)
== END 2017-12-09 15:28 ==
LOC: C.ER 14:01
DX: Z04.89 Encounter for examination and observation for other specified reasons (principal); Z65.3 Problems related to other legal circumstances